=== PATIENT | male | born 1940 | race Caucasian/White ===

== ENCOUNTER 2018-01-04 17:56 | Observation (INO) ==
[2018-01-04 19:24] LABS: Basophils % 0.3 %; Eosinophils # 0.1 K/mcL (0.0-0.6); Eosinophils % 0.8 %; Hematocrit 46.4 % (37.5-50.1); Hemoglobin 15.1 g/dL (12.9-16.9); Immature Granulocytes % 0.4 % (0-4); Lymphocytes % 13.1 %; Mean Corpuscular HGB Conc 32.5 g/dL (31.6-35.5); Mean Corpuscular Hemoglobin 29.8 pg (28.0-33.3); Mean Corpuscular Volume 91.5 fL (83.0-100.0); Mean Platelet Volume 10.9 fL (9.4-12.4); Monocytes # 0.9 K/mcL (0.0-1.3); Monocytes % 11.9 %; Neutrophils # 5.6 K/mcL (1.6-8.9); Platelet Count 142 K/mcL (140-400); Red Blood Count 5.07 M/mcL (4.19-5.50); Red Cell Distribution Width 14.1 % (11.5-14.5); Segmented Neutrophils % 73.5 %
[2018-01-04] MEDS ORDERED: *HR* FentaNYL (PF) 100 MCG/2 ML VIAL IVP ONE (19:27)
[2018-01-04 19:45] LABS: Calcium 8.7 mg/dL (8.6-10.3)
--- NOTE | 2018-01-04 19:46 | Emergency Department Note ---
Disposition Clinical Impression: Supratherapeutic INR, Kidney stone, Presence of IVC filter Disposition: Admitted As Inpatient Condition: Good Time of Disposition: 20:55 General Adult HPI - General Chief complaint: ED Abdominal Pain Stated complaint: aleyda stone Time Seen by Provider: 01/04/18 18:05 Source: patient, EMS Mode of arrival: EMS Limitations: no limitations Nursing Notes Reviewed: Yes Vital Signs Reviewed: Yes - History of Present Illness HPI Narrative: Patient is a 77-year-old male that presents the emergency department as a transfer from the [facility]. Patient states that he has been having ongoing right flank pain that radiates around into his lower abdomen down into his groin. Patient states that this pain has been pretty significant has rendered him from getting comfortable. Patient states that he has been urinating blood but has not had any increased urgency or frequency. Patient was sent here from the [place] due to having a kidney stone with hydronephrosis, elevated INR and into the IVC filter being in the wall of the aorta. Patient states that he is currently on Coumadin for his atrial fibrillation. Pain Scale: 5 - Related Data Allergies Allergy/AdvReac Type Severity Reaction Status Date / Time No Known Allergies Allergy Verified 01/04/18 18:05 All systems ED: reviewed and negative except as stated. Constitutional: Reports: fever Cardiovascular: Denies: chest pain Respiratory: Denies: dyspnea Gastrointestinal: Reports: abdominal pain, nausea. Denies: vomiting Genitourinary: Reports: hematuria. Denies: urgency, dysuria, frequency Musculoskeletal: Reports: back pain Past Medical History - Past Medical History Medical history: Reports: atrial fibrillation, DVT, hyperlipidemia, hypertension, kidney stones, myocardial infarction Psychiatric history: Reports: no psych history - Social History Smoking Status: Never smoker Smokeless Tobacco Status: No Alcohol use: Reports: rarely Drug use: Reports: none Physical Exam - General Limitations: no limitations General appearance: alert, in no apparent distress - Head Head exam: atraumatic, normocephalic - Eye Eye exam: Present: normal appearance, EOMI - Neck Neck exam: Present: normal inspection, full ROM, trachea midline - Respiratory Respiratory exam: Present: normal lung sounds bilaterally. Absent: respiratory distress, wheezes - Cardiovascular Cardiovascular exam: Present: regular rate, normal rhythm, normal heart sounds, +S1, +S2 - Abdominal Exam Abdominal exam: Present: soft, tenderness (Right sided), normal bowel sounds - Neurological Exam Neurological exam: Present: alert, oriented X3 - Psychiatric Psychiatric exam: Present: normal affect, normal mood - Skin Skin exam: Present: warm, dry, intact Course Vital Signs Temperature 97.7 F 01/04/18 18:05 Pulse Rate 56 01/04/18 18:05 Respiratory Rate 16 01/04/18 18:05 Blood Pressure 124/74 01/04/18 18:05 O2 Sat by Pulse Oximetry 98 01/04/18 18:05 Temperature 97.7 F 01/04/18 18:05 Pulse Rate 71 01/04/18 20:08 Respiratory Rate 16 01/04/18 20:08 Blood Pressure 122/71 01/04/18 20:08 O2 Sat by Pulse Oximetry 97 01/04/18 20:08 Oxygen Delivery Oxygen Delivery Room Air Medical Decision Making - MDM Narrative Medical decision making narrative: Due the patient's into the emergency department with kidney stone and a IVC filter that has gone through the IVC and is in the wall of the aorta I called and spoke with Dr. Joseph do not feel that this was a surgical emergency and review the CAT scan see the patient in consult tomorrow. I also placed a consu lt for urology due the patient having a 8 mm kidney stone on the right. Patient's laboratory testing was repeated here in the emergency department. Patient's INR was 7.7. Patient does appear to have an acute kidney injury. This to my review of the patient's chart I was not able to find any record of previous kidney disease. There are not any previous laboratory testing in our computer system for comparison. The patient will need to be admitted to the hospital for further evaluation and management. The patient was given 5 mg of vitamin K for reversal of his warfarin. Patient has been stable here in the emergency department and has been provided with analgesics. The disc that was sent from the [facility] with the patient's images was sent to radiology for uploading to pacs. Patient will need to be admitted to the hospital for further evaluation and management. I do not feel that the patient's Coumadin needs to be fully reverse at this time. He has no signs of active bleeding. The vitamin K was given. His warfarin will be held. I do not feel that fresh frozen plasma is necessary or indicated at this time. I called and spoke the admitting hospitalist Dr. Toledo and he has accepted the patient to their service. Patient be admitted to the hospital this time for further evaluation and management. - Medical Records Medical records reviewed: Yes I reviewed the patient's medical records. - Lab Data Lab results reviewed: Yes I reviewed the patient's lab results. Result diagrams: 01/06/18 05:02 01/06/18 05:02 Lab Results 01/04/18 01/04/18 01/04/18 Range/Units 19:12 19:12 19:12 WBC 7.6 (4.3-11.1) K/mcL RBC 5.07 (4.19-5.50) M/mcL Hgb 15.1 (12.9-16.9) g/dL Hct 46.4 (37.5-50.1) % MCV 91.5 (83.0-100.0) fL MCH 29.8 (28.0-33.3) pg MCHC 32.5 (31.6-35.5) g/dL RDW 14.1 (11.5-14.5) % Plt Count 142 (140-400) K/mcL MPV 10.9 (9.4-12.4) fL Immature Gran % 0.4 (0-4) % Seg Neutrophils % 73.5 % Lymphocytes % 13.1 % Monocytes % 11.9 % Eosinophils % 0.8 % Basophils % 0.3 % Neutrophils # 5.6 (1.6-8.9) K/mcL Lymphocytes # 1.0 (0.6-4.6) K/mcL Monocytes # 0.9 (0.0-1.3) K/mcL Eosinophils # 0.1 (0.0-0.6) K/mcL Basophils # 0.0 (0.0-0.2) K/mcL PT 87.4 H* (9.4-12.1) Seconds INR 7.7 H* Sodium 138 (136-145) mEq/L Potassium 4.0 (3.5-5.1) mEq/L Chloride 103 (98-107) mEq/L Carbon Dioxide 28 (23-29) mEq/L BUN 22 (8-23) mg/dL Creatinine 1.79 H (0.70-1.30) mg/dL Est GFR ( Amer) 45 L (> 60) Est GFR (Non-Af Amer) 37 L (> 60) BUN/Creatinine Ratio 12 (6-26) Glucose 102 (70-105) mg/dL Calculated Osmolality 290 (280-300) Calcium 8.7 (8.6-10.3) mg/dL - Radiology Data Radiology results reviewed: Yes I reviewed the patient's radiology results. The CT report from the [facility] was reviewed by myself and the attending. The disc was sent to radiology for the images to be uploaded. - EKG Data EKG #1 EKG attestation: Yes I reviewed and interpreted this EKG. EKG results narrative: EKG shows atrial fibrillation at a rate of 72 bpm, QRS duration of 120, QTC of 481. No evidence of STEMI and EKG. Attestation Statement - Attestation Attestation: I examined this patient and my medical decision-making was reviewed with the Resident Physician, Dr. Alvarez. I agree with the documented findings, disposition and treatment plan as described except to the extent set forth below. Pt is a 77 yo wm sent from the [facility] today after he was evaluated for R sided back pain radiating to R groin with nausea. Pt had complete lab eval and CT imaging, all records from [place] sent with pt. Upon review of records, pt with large R prox ureter stone, and also IVC filter complication noted on scan without intra-abd bleeding. Pt also on coumadin for A fib, and INR today is 7. Labs and imaging done within the last 5 hours. Pt in NAD, VSS. I agree with patient's physical exam findings as documented. Patient with no. No signs in the abdomen but complaining of moderate right flank pain radiating to the right groin consistent with this stone finding on the CT. She had repeat labs performed, was kept on cardiac monitoring, treated his pain and nausea, and contacted vascular surgery was consulate from the ED regarding his abnormal IVC finding. We applied to the images so they can review the films and contact us back and stated that they felt this was not any emergency but agreed to consult on the patient while here. We also consult urology to see the patient. Patient remained hemodynamically stable with no increase in his abdominal pain. Patient's H&H is stable, was administered vitamin K for elevated INR reversal. Patient will be admitted and urology and vascular surgery of both consulate from the ED and case was discussed with hospitalist who accepted the patient for admission.
[2018-01-04 19:56] LABS: INR 7.7; Prothrombin Time 87.4 Seconds (9.4-12.1)
[2018-01-04] MEDS ORDERED: traMADol 50 MG TABLET PO PRN (23:46)
[2018-01-04] MEDS ORDERED: Naloxone 0.4 MG/ML INJ IVP PRN (23:46)
[2018-01-04] MEDS ORDERED: Acetaminophen 325 MG TABLET PO PRN (23:46)
[2018-01-05] MEDS: *HR* OxyCODONE Immed Rel 5 MG TABLET PO PRN ×3 (00:11→17:16)
[2018-01-05] MEDS: 0.9 % Sodium Chloride 1,000 ML IVC SCH ×2 (00:12→11:51)
[2018-01-05] MEDS ORDERED: Nitroglycerin 0.4 MG TAB.SUBL SL PRN (02:47)
[2018-01-05] MEDS ORDERED: Furosemide 40 MG TABLET PO PRN (02:47)
[2018-01-05 04:11] LABS: Basophils % 0.3 %; Eosinophils # 0.1 K/mcL (0.0-0.6); Hematocrit 44.3 % (37.5-50.1); Hemoglobin 14.5 g/dL (12.9-16.9); Immature Granulocytes % 0.3 % (0-4); Lymphocytes # 0.7 K/mcL (0.6-4.6); Lymphocytes % 8.9 %; Mean Corpuscular HGB Conc 32.7 g/dL (31.6-35.5); Mean Corpuscular Hemoglobin 29.7 pg (28.0-33.3); Mean Corpuscular Volume 90.6 fL (83.0-100.0); Mean Platelet Volume 11.1 fL (9.4-12.4); Monocytes % 12.5 %; Neutrophils # 6.1 K/mcL (1.6-8.9); Platelet Count 132 K/mcL (140-400); Red Blood Count 4.89 M/mcL (4.19-5.50); Red Cell Distribution Width 14.1 % (11.5-14.5)
[2018-01-05 04:20] LABS: INR 2.9; Prothrombin Time 32.6 Seconds (9.4-12.1)
[2018-01-05 04:32] LABS: Albumin 3.2 g/dL (3.5-5.7); Albumin/Globulin Ratio 1.5 (1.1-2.2); Bilirubin,Total 1.9 mg/dL (0.3-1.0); Calcium 8.5 mg/dL (8.6-10.3); Globulin 2.1 g/dL (2.4-3.5); Potassium 3.9 mEq/L (3.5-5.1); Total Protein 5.3 g/dL (6.4-8.9)
--- NOTE | 2018-01-05 06:49 | Internal Med History&Physical ---
Date of Encounter: 01/05/18 Time of Encounter: 04:00 Internal Medicine - H&P: HPI Chief complaint: Flank Pain History of present illness: Mr. Ortiz is a 77 year old male that presents the emergency department as a transfer from the [facility]. Patient states that he has been having ongoing right flank pain that radiates around into his lower abdomen down into his groin. Patient states that this pain has been pretty significant has rendered him from getting comfortable. Patient states that he has been urinating blood but has not had any increased urgency or frequency. Patient was sent here from the [place] due to having a kidney stone with hydronephrosis, elevated INR and into the IVC filter being in the wall of the aorta. Patient states that he is currently on Coumadin for his atrial fibrillation. Past Med Surg Social Fam HX - Past Medical History Medical history: atrial fibrillation, DVT, hyperlipidemia, hypertension, kidney stones, myocardial infarction Psychiatric history: no psych history - Past Surgical History Additional surgical history: Knee, back surgery, - Social History Smoking Status: Never smoker Smokeless Tobacco Status: No Alcohol use: rarely Drug use: none Internal Medicine - H&P: Meds Carvedilol [Coreg] 12.5 mg PO BID 01/05/18 [History] Furosemide [Lasix] 40 mg PO DAILY PRN 01/05/18 [History] Lisinopril [Zestril] 20 mg PO DAILY 01/05/18 [History] Lovastatin [Altoprev] 20 mg PO DAILY 01/05/18 [History] Nitroglycerin [Nitrostat] 0.4 mg SL PRN PRN 01/05/18 [History] Warfarin [Coumadin] 5 mg PO 1800 01/05/18 [History] Allergy/AdvReac Type Severity Reaction Status Date / Time No Known Allergies Allergy Verified 01/04/18 18:05 All Systems PM: A 10-system review of systems was performed and is negative for pertinent findings except as documented above in the HPI. - Constitutional Constitutional: no chills, no fever(s), no night sweats - EENT Eyes: no change in vision, no discharge, no pain, no photophobia Ears: no ear discharge, no ear pain, no tinnitus Nose, mouth and throat: no dysphagia, no nasal discharge, no neck pain, no sore throat - Cardiovascular Cardiovascular ROS IM: no chest pain, no diaphoresis, no dyspnea, no lightheadedness, no palpitations, no syncope - Respiratory Respiratory: no cough, no dyspnea, no wheezing, no excessive phlegm production - Gastrointestinal Gastrointestinal: no abdominal pain, no diarrhea, no hematemesis, no hematochezia, no melena, no nausea, no vomiting - Musculoskeletal Musculoskeletal ROS IM: no numbness, no tingling - Integumentary Integumentary IM: no rash, no unusual bruising - Neurological Neurological ROS: no confusion, no convulsions, no focal weakness, no numbness, no tingling, no tremor(s) - Hematologic/Lymphatic Hematologic/Lymphatic: no easy bruising - Constitutional Vitals: Temp Pulse Resp BP Pulse Ox 98.7 F 66 15 112/72 95 01/05/18 03:27 01/05/18 03:27 01/05/18 03:27 01/05/18 03:27 01/05/18 03:27 Exam: General: Alert and oriented 3 lying in bed in no acute distress Skin:Normal color, no rash, no lesions. HEENT:EOM, pupils equal, round and reactive. Cardiovascular:Normal S1 & S2, no rubs, murmurs or gallops. No JVD. Pulse regular. Lungs:Normal breath sounds, no wheezes or crackles. Abdomen:Soft, non-tender, no rigidity. No CVA tenderness Extremities:No deformity, no edema or tenderness, no joint swelling or clubbing. Neurological:Normal cognition and motor skills. Pulses:Carotid and radial pulses normal +2. Rest of the physical exam is non contributory Internal Med - H&P Results - Labs CBC & Chem 7: 01/06/18 05:02 01/06/18 05:02 Labs: Short CBC 01/04/18 01/05/18 Range/Units 19:12 03:46 WBC 7.6 7.9 (4.3-11.1) K/mcL Hgb 15.1 14.5 (12.9-16.9) g/dL Hct 46.4 44.3 (37.5-50.1) % Plt Count 142 132 L (140-400) K/mcL Neutrophils # 5.6 6.1 (1.6-8.9) K/mcL BMP 01/04/18 01/05/18 19:12 03:46 Sodium 138 141 Potassium 4.0 3.9 Chloride 103 108 H Carbon Dioxide 28 25 BUN 22 23 Creatinine 1.79 H 1.76 H Glucose 102 117 H Calcium 8.7 8.5 L Liver Function 01/05/18 Range/Units 03:46 Total Bilirubin 1.9 H (0.3-1.0) mg/dL AST 10 L (13-39) Units/L ALT 5 L (7-52) Units/L Alkaline Phosphatase 55 (34-104) Units/L Albumin 3.2 L (3.5-5.7) g/dL - Assessment and plan (1) Kidney stone Status: Acute Assessment and plan: 8 mm kidney stone involving the right ureter. Urology has been consulted and will see patient in the morning. Plan: Continue IV fluids Pain control We will give patient 1 dose of tamsulosin Antiemetics Urology to assess in the morning (2) Presence of IVC filter Status: Chronic Assessment and plan: Imaging report shows that IVC filter to be within the wall of the aorta. Despite his elevated INR, Dr. Joseph with Vascular was consulted and did not feel that this was a surgical emergency and reviewed the CAT scan; he will see the patient in consult tomorrow. We will monitor vitals. (3) Supratherapeutic INR Status: Acute Assessment and plan: INR of 7.7. The patient was given 5 mg of vitamin K for reversal of his warfarin. We will repeat a.m. INR (4) Atrial fibrillation Status: Chronic Assessment and plan: Patient's supratherapeutic on warfarin. Holding warfarin for now Qualifiers: Atrial fibrillation type: chronic Qualified Code(s): I48.2 - Chronic atrial fibrillation - Time Spent With Patient Total time spent is greater than 50% in coordination of care (as documented) at patient's floor/unit and/or counseling patient:
[2018-01-05] MEDS ORDERED: Lisinopril 20 MG TABLET PO SCH (09:00)
--- NOTE | 2018-01-05 09:31 | Internal Med Progress Note ---
<Devin Richard S - Last Filed: 01/05/18 10:44> Hospitalist Progress Note - Encounter Date of Encounter: 01/05/18 Time of Encounter: 09:27 - Subjective Interval History: Mr Ortiz is a 77yo male with PMH of chronic a fib, HDL, HTN, MS. He presented from the [facility] last night after experiencing abd pain in the groin and RLQ region x 5 days. He states the pain radiated into the groin and was simialr to "getting kicked in the balls." He was unable to get comfortable in any position. The pt denies any fever, chills, N/V/D. He denies any chest pain or SOB. The pt also had a supratheruaptic INR on admission, he is on coumadin for chronic a fib. His coumadin has been held and his was given vitamin K on admission. This morning the pt denies any N/V, fever, or chills. He still has some crampy abd pain that is located in the RLQ. He currently has no active chest pain or SOB. - Exam Vitals: Temp Pulse Resp BP Pulse Ox 97.7 F 75 16 119/76 95 01/05/18 07:44 01/05/18 07:44 01/05/18 07:44 01/05/18 07:44 01/05/18 07:44 Exam: General: Alert and oriented 3 lying in bed in no acute distress Skin:Normal color, no rash, no lesions. HEENT: normocephalic atraumatic Cardiovascular: regular rate, irregularly irregular rhythm Lungs:Normal breath sounds, no wheezes or crackles. Abdomen: obese, Soft, tender to palpation in RLQ and periumbilical region, No CVA tenderness Extremities:No deformity, no edema or tenderness, no joint swelling or clubbing. Neurological:Normal cognition and motor skills. No FND - Assessment and Plan (1) Kidney stone Current Visit: Yes Status: Acute Assessment and Plan: Pt presented with 5d of abd pain with radiation into the groin - denied N/V - came from [facility] CT report showed an 8mm kidney stone of the right ureter w/ hydronephrosis Pt remains afebrile without a white count Plan: - continue 125cc/hr NS - pain control - zofran prn nausea - was given 1 dose of tamsulosin - urology to see Plans to stent today NPO dispo - d/c after stent and if stable (2) Supratherapeutic INR Current Visit: Yes Status: Acute Assessment and Plan: On admission: INR of 7.7 PT 87.4 This morning: INR 2.9 PT 32.6 Plan: - was given 5mg of vitamin K for coumadin reversal - hold coumadin (3) Presence of IVC filter Current Visit: Yes Status: Acute Assessment and Plan: Imaging report shows that IVC filter to be within the wall of the aorta. Plan: - Vascular surgery consulted Dr. Tsang viewed CT scan and will see pt today Not a surgical emergency (4) Atrial fibrillation Current Visit: Yes Status: Acute Assessment and Plan: Pt has irregularly irregular rhythm, HR 75 - on Coumadin - currently held 2/2 supratheruptc INR (5) Hypertension Current Visit: Yes Status: Acute Assessment and Plan: BP 119/76 - well controlled - on zestril (6) Hyperlipidemia Current Visit: No Status: Chronic Assessment and Plan: on Lovastatin - continue home med (7) DVT prophylaxis Current Visit: Yes Status: Acute Assessment and Plan: scd ordered (8) Obesity (BMI 30.0-34.9) Current Visit: No Status: Chronic Assessment and Plan: BMI 30.2 - healthier lifestyle choices - Time Spent with Patient Total time spent is greater than 50% in coordination of care (as documented) at patient's floor/unit and/or counseling patient: less than 15 minutes Plan of Care Discussed with: patient Internal Medicine: Result - Labs CBC & Chem 7: 01/05/18 03:46 01/05/18 03:46 Labs: Short CBC 01/04/18 01/05/18 Range/Units 19:12 03:46 WBC 7.6 7.9 (4.3-11.1) K/mcL Hgb 15.1 14.5 (12.9-16.9) g/dL Hct 46.4 44.3 (37.5-50.1) % Plt Count 142 132 L (140-400) K/mcL Neutrophils # 5.6 6.1 (1.6-8.9) K/mcL BMP 01/04/18 01/05/18 19:12 03:46 Sodium 138 141 Potassium 4.0 3.9 Chloride 103 108 H Carbon Dioxide 28 25 BUN 22 23 Creatinine 1.79 H 1.76 H Glucose 102 117 H Calcium 8.7 8.5 L Liver Function 01/05/18 Range/Units 03:46 Total Bilirubin 1.9 H (0.3-1.0) mg/dL AST 10 L (13-39) Units/L ALT 5 L (7-52) Units/L Alkaline Phosphatase 55 (34-104) Units/L Albumin 3.2 L (3.5-5.7) g/dL - ABG Interpretation ABG results: PT/INR, D-dimer PT 32.6 Seconds (9.4-12.1) H D 01/05/18 03:46 Consult Discharge Plan - Plan Referrals: Arturo Tsang MD [Partnered Physician] - 04/05/18 NONE,PCP [Primary Care Provider] - <Vik Monae - Last Filed: 01/05/18 16:17> Hospitalist Progress Note - Exam Vitals: Temp Pulse Resp BP Pulse Ox 98.7 F 80 14 122/79 96 01/05/18 14:55 01/05/18 14:55 01/05/18 14:55 01/05/18 14:55 01/05/18 14:55 - Assessment and Plan (1) Supratherapeutic INR Current Visit: Yes Status: Acute (2) Kidney stone Current Visit: Yes Status: Acute (3) Presence of IVC filter Current Visit: Yes Status: Chronic (4) DVT prophylaxis Current Visit: Yes Status: Acute (5) Atrial fibrillation Current Visit: Yes Status: Chronic (6) Hypertension Current Visit: Yes Status: Acute (7) Hyperlipidemia Current Visit: No Status: Chronic (8) Obesity (BMI 30.0-34.9) Current Visit: No Status: Chronic - Time Spent with Patient Total time spent is greater than 50% in coordination of care (as documented) at patient's floor/unit and/or counseling patient: Internal Medicine: Result - Labs CBC & Chem 7: 01/05/18 03:46 01/05/18 15:33 Labs: Short CBC 01/04/18 01/05/18 Range/Units 19:12 03:46 WBC 7.6 7.9 (4.3-11.1) K/mcL Hgb 15.1 14.5 (12.9-16.9) g/dL Hct 46.4 44.3 (37.5-50.1) % Plt Count 142 132 L (140-400) K/mcL Neutrophils # 5.6 6.1 (1.6-8.9) K/mcL BMP 01/04/18 01/05/18 01/05/18 19:12 03:46 15:33 Sodium 138 141 139 Potassium 4.0 3.9 4.1 Chloride 103 108 H 105 Carbon Dioxide 28 25 26 BUN 22 23 22 Creatinine 1.79 H 1.76 H 1.72 H Glucose 102 117 H 95 Calcium 8.7 8.5 L 8.9 Liver Function 01/05/18 Range/Units 03:46 Total Bilirubin 1.9 H (0.3-1.0) mg/dL AST 10 L (13-39) Units/L ALT 5 L (7-52) Units/L Alkaline Phosphatase 55 (34-104) Units/L Albumin 3.2 L (3.5-5.7) g/dL - ABG Interpretation ABG results: PT/INR, D-dimer PT 32.6 Seconds (9.4-12.1) H D 01/05/18 03:46 - Attending Attestation I examined this patient and my medical decision-making was reviewed with the Resident Physician. I agree with the documented findings, disposition and treatment plan as described except to the extent set forth below. <Devin Richard - Last Filed: 01/05/18 10:44> (4) Atrial fibrillation Qualifiers: Atrial fibrillation type: chronic Qualified Code(s): I48.2 - Chronic atrial fibrillation (5) Hypertension Qualifiers: Hypertension type: essential hypertension Qualified Code(s): I10 - Essential (primary) hypertension (6) Hyperlipidemia Qualifiers: Hyperlipidemia type: unspecified Qualified Code(s): E78.5 - Hyperlipidemia, unspecified <Vik Monae - Last Filed: 01/05/18 16:17> (5) Atrial fibrillation Qualifiers: Atrial fibrillation type: chronic Qualified Code(s): I48.2 - Chronic atrial fibrillation (6) Hypertension Qualifiers: Hypertension type: essential hypertension Qualified Code(s): I10 - Essential (primary) hypertension (7) Hyperlipidemia Qualifiers: Hyperlipidemia type: unspecified Qualified Code(s): E78.5 - Hyperlipidemia, unspecified
--- NOTE | 2018-01-05 10:55 | Urology - Consult Note ---
Date of Encounter: 01/05/18 Time of Encounter: 10:53 - Assessment and Plan (1) Ureteral calculus, right Current Visit: Yes Status: Acute Assessment and plan: Patient transferred from [facility] with 8 mm right ureteral calculus. Patient is on Coumadin. Discussed findings and options for management with patient as well as admitting physicians. Plan: Add on today for right ureteral stent placement under anesthesia. Definitive surgical planning including management of anticoagulation (2) Hydronephrosis due to obstruction of ureter Current Visit: Yes Status: Acute Assessment and plan: Secondary to ureteral calculus. Anticipate spontaneous resolution with address of stone. Plan: Stent placement in OR today (3) Anticoagulation excessive Current Visit: Yes Status: Acute Assessment and plan: Patient is on Coumadin with supratherapeutic INR of 7.7 now down to 3. Discussed findings and management with primary service. Unable to perform definitive stone intervention due to anticoagulation. Is safe and indicated in the setting of active anticoagulation. Plan: Okay to continue anticoagulation (4) Flank pain, acute Current Visit: Yes Status: Acute Assessment and plan: Secondary to stone and [place]. Plan: Management as above Urology CN:HPI Consult date: 01/05/18 Reason for consult Urology: Other (Right ureteral calculus) Past Med Surg Social Fam HX - Past Medical History Medical history: atrial fibrillation, DVT, hyperlipidemia, hypertension, kidney stones, myocardial infarction Psychiatric history: no psych history - Past Surgical History Additional surgical history: Knee, back surgery, - Social History Smoking Status: Never smoker Smokeless Tobacco Status: No Alcohol use: rarely Drug use: none Medications and Allergies Carvedilol [Coreg] 12.5 mg PO BID 01/05/18 [History] Furosemide [Lasix] 40 mg PO DAILY PRN 01/05/18 [History] Lisinopril [Zestril] 20 mg PO DAILY 01/05/18 [History] Lovastatin [Altoprev] 20 mg PO DAILY 01/05/18 [History] Nitroglycerin [Nitrostat] 0.4 mg SL PRN PRN 01/05/18 [History] Warfarin [Coumadin] 5 mg PO 1800 01/05/18 [History] Allergy/AdvReac Type Severity Reaction Status Date / Time No Known Allergies Allergy Verified 01/04/18 18:05 Review of Systems - Constitutional no chills, no fever(s) - EENT Nose, mouth and throat: no dizziness, no dry mouth - Cardiovascular no chest pain, no dyspnea - Respiratory no cough, no dyspnea - Gastrointestinal abdominal pain, no fecal incontinence - Genitourinary no genital lesions - Musculoskeletal no muscle weakness, no numbness - Integumentary no lesions, no rash - Neurological no confusion, no sensory deficit - Psychiatric no anxiety, no confusion - Hematologic/Lymphatic easy bleeding, other (Anticoagulated) - Allergic/Immunologic no throat swelling, no wheezing Exam Initial Vital Signs Temp Pulse Resp BP Pulse Ox 97.7 F 56 16 124/74 98 01/04/18 18:05 01/04/18 18:05 01/04/18 18:05 01/04/18 18:05 01/04/18 18:05 - General physical appearance Present: well developed, well nourished - Eyes Present: normal ocular movement - ENT Present: normal nares, normal mucosa - Neck Present: trachea midline - Respiratory Present: normal respiratory effort - Abdomen Abdomen: Present: soft, tender - Integumentary Present: no rash, no abnormal pigmentation - Neurologic Present: normal coordination - Musculoskeletal Present: normal gait Urology Results - Labs 01/05/18 03:46 01/05/18 03:46 Abnormal lab results Plt Count 132 K/mcL (140-400) L 01/05/18 03:46 PT 32.6 Seconds (9.4-12.1) H D 01/05/18 03:46 Chloride 108 mEq/L (98-107) H 01/05/18 03:46 Creatinine 1.76 mg/dL (0.70-1.30) H 01/05/18 03:46 Est GFR ( Amer) 46 (> 60) L 01/05/18 03:46 Est GFR (Non-Af Amer) 38 (> 60) L 01/05/18 03:46 Glucose 117 mg/dL (70-105) H 01/05/18 03:46 Calcium 8.5 mg/dL (8.6-10.3) L 01/05/18 03:46 Total Bilirubin 1.9 mg/dL (0.3-1.0) H 01/05/18 03:46 AST 10 Units/L (13-39) L 01/05/18 03:46 ALT 5 Units/L (7-52) L 01/05/18 03:46 Serum Total Protein 5.3 g/dL (6.4-8.9) L 01/05/18 03:46 Albumin 3.2 g/dL (3.5-5.7) L 01/05/18 03:46 Globulin 2.1 g/dL (2.4-3.5) L 01/05/18 03:46 Diabetes panel 01/04/18 01/05/18 Range/Units 19:12 03:46 Sodium 138 141 (136-145) mEq/L Potassium 4.0 3.9 (3.5-5.1) mEq/L Chloride 103 108 H (98-107) mEq/L Carbon Dioxide 28 25 (23-29) mEq/L BUN 22 23 (8-23) mg/dL Creatinine 1.79 H 1.76 H (0.70-1.30) mg/dL Glucose 102 117 H (70-105) mg/dL Calcium 8.7 8.5 L (8.6-10.3) mg/dL AST 10 L (13-39) Units/L ALT 5 L (7-52) Units/L Alkaline Phosphatase 55 (34-104) Units/L Albumin 3.2 L (3.5-5.7) g/dL Calcium panel 01/04/18 01/05/18 Range/Units 19:12 03:46 Calcium 8.7 8.5 L (8.6-10.3) mg/dL Albumin 3.2 L (3.5-5.7) g/dL Pituitary panel 01/04/18 01/05/18 Range/Units 19:12 03:46 Sodium 138 141 (136-145) mEq/L Potassium 4.0 3.9 (3.5-5.1) mEq/L Chloride 103 108 H (98-107) mEq/L Carbon Dioxide 28 25 (23-29) mEq/L BUN 22 23 (8-23) mg/dL Creatinine 1.79 H 1.76 H (0.70-1.30) mg/dL Glucose 102 117 H (70-105) mg/dL Calcium 8.7 8.5 L (8.6-10.3) mg/dL Adrenal panel 01/04/18 01/05/18 Range/Units 19:12 03:46 Sodium 138 141 (136-145) mEq/L Potassium 4.0 3.9 (3.5-5.1) mEq/L Chloride 103 108 H (98-107) mEq/L Carbon Dioxide 28 25 (23-29) mEq/L BUN 22 23 (8-23) mg/dL Creatinine 1.79 H 1.76 H (0.70-1.30) mg/dL Glucose 102 117 H (70-105) mg/dL Calcium 8.7 8.5 L (8.6-10.3) mg/dL Total Bilirubin 1.9 H (0.3-1.0) mg/dL AST 10 L (13-39) Units/L ALT 5 L (7-52) Units/L Alkaline Phosphatase 55 (34-104) Units/L Albumin 3.2 L (3.5-5.7) g/dL All other labs normal. - Imaging CT scan - abdomen: report reviewed CT scan - pelvis: report reviewed (. Report only no images are available for review) Consult Discharge Plan - Plan Referrals: NONE,PCP [Primary Care Provider] -
--- NOTE | 2018-01-05 12:51 | Vascular/Endovasc Consult Note ---
Date of Encounter: 01/05/18 Time of Encounter: 11:20 Assessment and Plan (1) Presence of IVC filter Current Visit: Yes Status: Chronic The patient had an inferior vena cava filter placed in approximately 2004. He reports that he had multiple deep vein thromboses in the past. His CT scan was reviewed. The scan is a noncontrast scan with [address] reveals that the filter appears to be a [employer] brand permanent filter. A strut is visualized extending medially through the vena cava wall. The tip of the strut appears to be adjacent or abuts a calcified section of the infrarenal aorta. The does not appear to be intrusion into the aorta. There is no associated inflammatory changes or hematoma formation. There is no indication for removal of the filter at this time. Surveillance is recommended. The patient may follow up in vascular surgery clinic in approximately 3 months with a repeat CT scan. (2) Atrial fibrillation Current Visit: Yes Status: Chronic Qualifiers: Atrial fibrillation type: chronic Qualified Code(s): I48.2 - Chronic atrial fibrillation (3) Hypertension Current Visit: Yes Status: Chronic Qualifiers: Hypertension type: essential hypertension Qualified Code(s): I10 - Essential (primary) hypertension (4) Hyperlipidemia Current Visit: Yes Status: Chronic Qualifiers: Hyperlipidemia type: mixed hyperlipidemia Qualified Code(s): E78.2 - Mixed hyperlipidemia (5) Obesity (BMI 30.0-34.9) Current Visit: No Status: Chronic (6) Kidney stone Current Visit: Yes Status: Acute - History of Present Illness Consult date: 01/05/18 Requesting physician: Alfredo Alvarez Consult reason: Evaluation of inferior vena cava filter Chief complaint: Kidney stone History of present illness: Mr. Ortiz is a 77 year old male with a history of deep vein thrombosis, H or fibrillation, hyperlipidemia, hypertension, coronary artery disease with prior myocardial infarction and kidney stones. The patient presented to the [facility] with back pain. He is found have a kidney stone by CT scan. He underwent a noncontrast CT scan with 5 mm cuts. The scan also evaluated his prior inferior vena cava filter. The report stated possible penetration of a strut into the aorta. Vascular surgery was counseled for further evaluation. The patient reports flank pain related to his kidney stones. Denies chronic lower back pain. He denies abdominal pain. He denies any chest pain or shortness breath. He reports that his inferior vena cava filter was placed in the approximately 2004. Past Med Surg Social Fam HX - Past Medical History Medical history: atrial fibrillation, DVT, hyperlipidemia, hypertension, kidney stones, myocardial infarction Psychiatric history: no psych history - Past Surgical History Additional surgical history: Knee, back surgery, - Social History Smoking Status: Never smoker Smokeless Tobacco Status: No Alcohol use: rarely Drug use: none - Family History Father Living Status: Mother Living Status: Medications and Allergies Carvedilol [Coreg] 12.5 mg PO BID 01/05/18 [History] Furosemide [Lasix] 40 mg PO DAILY PRN 01/05/18 [History] Lisinopril [Zestril] 20 mg PO DAILY 01/05/18 [History] Lovastatin [Altoprev] 20 mg PO DAILY 01/05/18 [History] Nitroglycerin [Nitrostat] 0.4 mg SL PRN PRN 01/05/18 [History] Warfarin [Coumadin] 5 mg PO 1800 01/05/18 [History] Allergy/AdvReac Type Severity Reaction Status Date / Time No Known Allergies Allergy Verified 01/04/18 18:05 All Systems Review: The remainder of the systems were reviewed and are negative Exam Vital Signs, Last 4 Hours Temp Pulse Resp BP Pulse Ox 01/05/18 10:50 98.5 F 65 16 113/79 96 General: Present: Conversant, No Apparent Distress HEENT: Present: Trachea midline, Pupils equal Neck: Absent: JVD, Lymphadenopathy, Left Carotid bruit, Right Carotid bruit Cardiac: Present: Normal S1 and S2, Irregular Rhythm Lungs: Present: Normal Breath Sounds, No Wheeze, Rales, Rhonchi Neuro: Present: Alert and responsive, No focal deficits noted, Motor nerves grossly intact, Sensory nerves grossly intact Abdomen: Present: Soft, Non-tender. Absent: Masses Vascular: Present: Normal capillary refill. Absent: Cyanosis, Edema Skin: Present: No rashes noted on visualized skin Musculoskeletal: Present: No Chest Wall Tenderness Consult Discharge Plan - Plan Referrals: Arturo Tsang MD [Partnered Physician] - 04/05/18 NONE,PCP [Primary Care Provider] -
--- NOTE | 2018-01-05 15:09 | Discharge Summary ---
<Devin Richard S - Last Filed: 01/05/18 15:07> - NOTES TO OUTPATIENT PROVIDER Notes to Outpatient Provider: Follow up on kidney fxn. Follow up in vascular surgery clinic in 3mos with repeat CT scan Orders not resulted at time of discharge: Pending orders 01/05/18 14:56 EKG [ECG 12 lead ECG] [ECG] Stat 01/06/18 04:00 BMP [Basic Metabolic Panel] AM 0400 Complete Blood Count [HEME] AM 0400 Prothrombin Time INR [COAG] AM 0400 Date of Encounter: 01/05/18 Time of Encounter: 15:07 - Discharge Diagnosis (1) Kidney stone Priority: Primary Status: Acute (2) Supratherapeutic INR Priority: Secondary Status: Acute (3) Presence of IVC filter Priority: Secondary Status: Chronic (4) Atrial fibrillation Priority: Secondary Status: Chronic Qualifiers: Atrial fibrillation type: chronic Qualified Code(s): I48.2 - Chronic atrial fibrillation (5) Hypertension Priority: Secondary Status: Acute Qualifiers: Hypertension type: essential hypertension Qualified Code(s): I10 - Essential (primary) hypertension (6) Hyperlipidemia Priority: Secondary Status: Chronic Qualifiers: Hyperlipidemia type: unspecified Qualified Code(s): E78.5 - Hyperlipidemia, unspecified (7) DVT prophylaxis Priority: Secondary Status: Acute (8) Obesity (BMI 30.0-34.9) Priority: Secondary Status: Chronic Hospital course: Mr Ortiz is a 77yo male with PMH of chronic a fib, HDL, HTN, [place]. He presented from the [facility] last night after experiencing abd pain in the groin and RLQ region x 5 days. He states the pain radiated into the groin and was simialr to "getting kicked in the balls." He was unable to get comfortable in any position. The pt denies any fever, chills, N/V/D. He denies any chest pain or SOB. The pt also had a supratheruaptic INR on admission, he is on coumadin for chronic a fib. His coumadin has been held and his was given vitamin K on admission. - PT 87.4, INR 7.7 on admission - this morning INR 2.9, PT 32.6 This morning the pt denies any N/V, fever, or chills. He still has some crampy abd pain that is located in the RLQ. He currently has no active chest pain or SOB. Urology is to see the patient for a stent this afternoon. - CT scan showed an 8mm kidney stone at the right ureter with hydronpehoris - pt remained afebrile w/o a white count Creatinine was elevated on admission at 1.79 - at [facility] creatinine was 1.9 - conditional discharge pending procedure completion and ANGELO resolving, creatinine must be lower than admission for d/c - there will be orders for a recheck of BMP later this afternoon, as well as for the morning - pt was treated with 125cc/hr IVF NS, given pain control, zofran for nausea, and 1 dose of tamsulosin Discharge discussed with: patient - Time Spent with Patient Total time spent providing and/or coordinating discharge services: Less than 30 minutes - Discharge Medications Home Medications: Carvedilol [Coreg] 12.5 mg PO BID 01/05/18 [History] Furosemide [Lasix] 40 mg PO DAILY PRN 01/05/18 [History] Lisinopril [Zestril] 20 mg PO DAILY 01/05/18 [History] Lovastatin [Altoprev] 20 mg PO DAILY 01/05/18 [History] Nitroglycerin [Nitrostat] 0.4 mg SL PRN PRN 01/05/18 [History] Warfarin [Coumadin] 5 mg PO 1800 01/05/18 [History] Allergies/Adverse Reactions: Allergy/AdvReac Type Severity Reaction Status Date / Time No Known Allergies Allergy Verified 01/04/18 18:05 Date of admission: 01/04/18 22:58 Primary care physician: PCP NONE Consults: 01/04/18 19:14 Consult to Urology [CONS] Stat Consulting Provider: Urology [place] Reason for Consult: 8mm stone Call Completed: No Consult to Vascular Surgery [CONS] Stat Consulting Provider: Vascular Surgery Ja[facility] Reason for Consult: ivc filter perf Call Completed: Yes 01/04/18 23:35 Consult to Nutrition [CONS] Routine Comment: Consulting Provider: NUTRITION Reason for Dietary Consult: Other Discharging clinician: Devin Richard Anticipated date of discharge: 01/06/18 - Constitutional Vitals: Temp Pulse Resp BP Pulse Ox 98.5 F 65 16 113/79 96 01/05/18 10:50 01/05/18 10:50 01/05/18 10:50 01/05/18 10:50 01/05/18 10:50 Exam: General: Alert and oriented 3 lying in bed in no acute distress Skin:Normal color, no rash, no lesions. HEENT: normocephalic atraumatic Cardiovascular: regular rate, irregularly irregular rhythm Lungs:Normal breath sounds, no wheezes or crackles. Abdomen: obese, Soft, tender to palpation in RLQ and periumbilical region, No CVA tenderness Extremities:No deformity, no edema or tenderness, no joint swelling or clubbing. Neurological:Normal cognition and motor skills. No FND - Patient Status Disposition: Home, Self-Care Condition: Good - Discharge Instructions Follow Up With: NONE,PCP [Primary Care Provider] - Arturo Tsang MD [Partnered Physician] - 04/05/18 - Diet and Activity Activity: increase activity as tolerated Diet: advance to your usual diet <Vik Monae - Last Filed: 01/05/18 16:23> Orders not resulted at time of discharge: Pending orders 01/05/18 14:56 EKG [ECG 12 lead ECG] [ECG] Stat 01/06/18 04:00 BMP [Basic Metabolic Panel] AM 0400 Complete Blood Count [HEME] AM 0400 Prothrombin Time INR [COAG] AM 0400 - Discharge Diagnosis (1) Supratherapeutic INR Status: Acute (2) Kidney stone Status: Acute (3) Presence of IVC filter Status: Chronic (4) DVT prophylaxis Status: Acute (5) Atrial fibrillation Status: Chronic Qualifiers: Atrial fibrillation type: chronic Qualified Code(s): I48.2 - Chronic atrial fibrillation (6) Hypertension Status: Acute Qualifiers: Hypertension type: essential hypertension Qualified Code(s): I10 - Essential (primary) hypertension (7) Hyperlipidemia Status: Chronic Qualifiers: Hyperlipidemia type: unspecified Qualified Code(s): E78.5 - Hyperlipidemia, unspecified (8) Obesity (BMI 30.0-34.9) Status: Chronic Hospital course: Mr. Ortiz is a 77 year old male - Time Spent with Patient Total time spent providing and/or coordinating discharge services: Date of admission: 01/04/18 22:58 Primary care physician: PCP NONE Consults: 01/04/18 19:14 Consult to Urology [CONS] Stat Consulting Provider: Urology [place] Reason for Consult: 8mm stone Call Completed: No Consult to Vascular Surgery [CONS] Stat Consulting Provider: Vascular Surgery [place] Reason for Consult: ivc filter perf Call Completed: Yes 01/04/18 23:35 Consult to Nutrition [CONS] Routine Comment: Consulting Provider: NUTRITION Reason for Dietary Consult: Other - Constitutional Vitals: Temp Pulse Resp BP Pulse Ox 98.7 F 80 14 122/79 96 01/05/18 14:55 01/05/18 14:55 01/05/18 14:55 01/05/18 14:55 01/05/18 14:55 - Attending Attestation I examined this patient and my medical decision-making was reviewed with the Resident Physician. I agree with the documented findings, disposition and treatment plan as described except to the extent set forth below.
[2018-01-05 16:09] LABS: Calcium 8.9 mg/dL (8.6-10.3); Potassium 4.1 mEq/L (3.5-5.1)
[2018-01-05] MEDS ORDERED: Isovue-300 30 ML VIAL ONE (22:10)
--- NOTE | 2018-01-05 22:13 | Anesthesia Evaluation PreOp ---
Date of Encounter: 01/05/18 Time of Encounter: 22:10 - Past History Planned Operation: Rt Cystoscopy Stent Cardiac History: HTN, Hyperlipidemia, Arrhythmia (AFib Chronic on Coreg), Other (CAD DVT off Coumadin) Pulmonary History: Denies Any Significant HX ESCORT PATIENTS History: Denies Any Significant HX Other Medical History: Denies Any Significant HX Anesthesia History: No Prior Anesthetic Complications Alcohol Use: rarely Drug use: none Medications and Allergies Carvedilol [Coreg] 12.5 mg PO BID 01/05/18 [History] Furosemide [Lasix] 40 mg PO DAILY PRN 01/05/18 [History] Lisinopril [Zestril] 20 mg PO DAILY 01/05/18 [History] Lovastatin [Altoprev] 20 mg PO DAILY 01/05/18 [History] Nitroglycerin [Nitrostat] 0.4 mg SL PRN PRN 01/05/18 [History] Warfarin [Coumadin] 5 mg PO 1800 01/05/18 [History] Allergy/AdvReac Type Severity Reaction Status Date / Time No Known Allergies Allergy Verified 01/04/18 18:05 - Meds/Allergy Pre-op Review Medications Reviewed: Yes Allergies Reviewed: Yes Beta Blockers on Current Med List: Yes (Coreg today 1400) Anesthesia Results - Labs 01/05/18 03:46 01/05/18 15:33 Laboratory Tests 01/05/18 01/05/18 03:46 15:33 Hgb 14.5 Hct 44.3 Plt Count 132 L Sodium 139 Potassium 4.1 BUN 22 Creatinine 1.72 H Anesthesia Exam Vital Signs/O2 Sat/Glucose, Most Current Temp Pulse Resp Pulse Ox 01/05/18 20:00 94 01/05/18 19:35 98.8 F 65 15 94 Height: 6'2 Weight: 235 lbs NPO (# of Hours): MN Pain Scale: 0 - HEENT Pupil (Motor): Pupils equal, EOMI Mallampati: II Teeth: Normal Oral Opening: Greater than 3 - ESCORT PATIENTS LOC: Oriented ESCORT PATIENTS Motor: Normal RUE, Normal LUE, Normal RLE, Normal LLE, Normal Face ESCORT PATIENTS Sensory: Normal: RUE, LUE, RLE, LLE, Face - Cardiac Rhythm: Irregular Murmur: None JVD: No Carotid Bruit: No - Pulmonary Breath Sounds: bilateral Clear Respiratory Effort: Symmetrical Anesthesia Assess/Plan ASA Score: 3 (HTN AFib) Modified [place] Scale for Level of Consciousness: Cooperative, oriented, and tranquil Anesthetic Plan: General Monitoring Plan: Standard Monitors Recovery Plan: PACU (Discussed GA, agrees to proceed)
[2018-01-05] MEDS ORDERED: *HR* Propofol 200 MG/20 ML VIAL IVP ONE (22:26)
[2018-01-05] MEDS ORDERED: Ondansetron 4 MG/2 ML VIAL ONE (22:27)
[2018-01-05] MEDS ORDERED: Dexamethasone 4 MG/ML VIAL ONE (22:27)
[2018-01-05] MEDS ORDERED: Lidocaine -MPF 2% 2 ML VIAL ONE (22:27)
[2018-01-05] MEDS ORDERED: *HR* FentaNYL (PF) 100 MCG/2 ML VIAL ONE (22:27)
[2018-01-05] MEDS ORDERED: *HR* Morphine 10 MG/ML VIAL ONE (22:50)
[2018-01-05] MEDS ORDERED: EPHEDrine 50 MG/ML VIAL ONE (22:54)
--- NOTE | 2018-01-05 22:56 | Operative Note ---
Date of procedure: 01/05/18 Pre-op diagnosis: Right ureteral calculus Post-op diagnosis: same Procedure: Cystoscopy, right retrograde ureteral pyelography with intraoperative interpretation of of all radial graphic images by surgeon in real time to facilitate procedure, right ureteral double-J stent placement under fluoroscopic guidance Implants: 6 x 28 right double-J stent Complications: none Anesthesia: GETA Surgeon: Abhishek Austin Was there an entry level administrative assistant present: No Estimated blood loss (cc): 0 Specimen: none Condition: stable Disposition: PACU Procedure in Detail: The patient was brought to the operating theater identified by name and date of . The patient was placed under a general anesthetic and positioned in dorsal lithotomy. The patient was prepped and draped in normal sterile fashion. The cystoscope was inserted into the urethral meatus and advanced toward the bladder under direct visualization. There were no mucosal abnormalities of the urethra prostatic urethra bladder. At this point an open-ended catheter was obtained and placed into the tip of the right ureteral orifice and with gentle injection of contrast a right retrograde ureteral pyelogram was performed. 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 The ureter itself was normal to the level of the proximal ureter or obstruction consistent with the CT imaging of stone was identified. Above this level hydroureteronephrosis was visualized. There were no other suspicious findings. At this point, a Glidewire was advanced into the right renal pelvis. All instruments were removed from the patient's bladder. Over the existing Glidewire under fluoroscopic guidance a 6 x 28 double-J stent was advanced. Once the stent was felt to be in good position the Glidewire was removed and observation of proximal and distal stent curls were noted in satisfactory position. This was felt to be an excellent result. Thus, this ended the operative procedure.
[2018-01-05] MEDS ORDERED: Ringers Solution, Lactated 1,000 ML ONE (23:21)
--- NOTE | 2018-01-05 23:52 | Anesthesia Evaluation Post Op ---
Date of Encounter: 01/05/18 Time of Encounter: 23:50 - Vital Signs Vital Signs: Vital Signs/O2 Sat/Glucose, Most Current Temp Pulse Resp BP Pulse Ox 01/05/18 23:38 98.4 F 75 18 129/80 100 01/05/18 23:28 73 20 127/85 98 01/05/18 23:18 72 22 111/69 97 01/05/18 23:08 98.9 F 80 26 88/61 97 01/05/18 20:00 94 - Lungs Lungs: Clear Ascult./Percussion - Airway Airway: Non-obstructed - Cardiovascular Regular Rate - Mental Status Mental Status: Alert & Oriented, Answers Appropriately - Pain Pain Scale: 0 - Nausea Vomiting Nausea Vomiting: Not Present - Hydration Hydration: Ice chips - Discharge PostOp Status: Transfer Patient to floor
[2018-01-06] MEDS ORDERED: *HR* OxyCODONE Immed Rel 5 MG TABLET PO PRN (00:04)
[2018-01-06] MEDS ORDERED: traMADol 50 MG TABLET PO PRN (00:04)
[2018-01-06] MEDS ORDERED: Acetaminophen 325 MG TABLET PO PRN (00:04)
[2018-01-06] MEDS ORDERED: Naloxone 0.4 MG/ML INJ IVP PRN (00:04)
[2018-01-06] MEDS ORDERED: Nitroglycerin 0.4 MG TAB.SUBL SL PRN (00:04)
[2018-01-06 05:35] LABS: Hematocrit 48.8 % (37.5-50.1); Hemoglobin 15.5 g/dL (12.9-16.9); Immature Granulocytes % 0.4 % (0-4); Lymphocytes # 0.3 K/mcL (0.6-4.6); Lymphocytes % 3.1 %; Mean Corpuscular HGB Conc 31.8 g/dL (31.6-35.5); Mean Corpuscular Hemoglobin 29.1 pg (28.0-33.3); Mean Corpuscular Volume 91.6 fL (83.0-100.0); Mean Platelet Volume 11.3 fL (9.4-12.4); Monocytes # 0.3 K/mcL (0.0-1.3); Monocytes % 3.4 %; Neutrophils # 7.9 K/mcL (1.6-8.9); Platelet Count 154 K/mcL (140-400); Red Blood Count 5.33 M/mcL (4.19-5.50); Red Cell Distribution Width 13.9 % (11.5-14.5); Segmented Neutrophils % 93.1 %
[2018-01-06 05:44] LABS: INR 1.4; Prothrombin Time 16.3 Seconds (9.4-12.1)
[2018-01-06 05:53] LABS: Calcium 8.5 mg/dL (8.6-10.3); Potassium 4.3 mEq/L (3.5-5.1)
[2018-01-06] MEDS ORDERED: Lisinopril 20 MG TABLET PO SCH (09:00)
--- NOTE | 2018-01-06 09:09 | Event Note ---
<Devin Richard S - Last Filed: 01/06/18 09:06> Date of Encounter: 01/06/18 Time of Encounter: 09:06 pt is seen and examined at bedside - no compaints, no chest pain, SOB, n/v/d - abd pain is improving and is minimal - urology saw and stented yesterday Pt is stable for d/c, d/c orders already in - can leave after attending sees Exam - no pertinent positives A/P 1. Kindey stone - pt was stented by urology yesterday - stable for d/c 2. ANGELO - improving, was most likely 2/2 poor PO intake - resolved with fluids 3. IVC filter - f/u appt with dr. loyd in 3mos 4. supratherauptic INR - resolved - resume coudmain, PT INR in 3days - follow up with [facility] 1 wk 5. HDL 6. HTN 7. obesity, BMI 30 <Vik Monae - Last Filed: 01/06/18 19:46> I examined this patient and my medical decision-making was reviewed with the Resident Physician. I agree with the documented findings, disposition and treatment plan as described except to the extent set forth below.
[2018-01-06 10:10] VITALS: BP 128/74
--- NOTE | 2018-01-08 12:41 | Electrocardiograph Report ---
[place] [employer] [facility] Test Date: 2018-01-04 Pat Name: Cirilo Ortiz Department: [id number] Room: 3A37 Gender: M [employer]: : 1940 Requested By: Mattie Monae Order Number: [id number] Reading MD: Alek Martin Measurements Intervals [place] Rate: 73 P: FL: QRS: -25 QRSD: 120 T: 131 QT: 436 QTc: 481 Interpretive Statements Atrial fibrillation Nonspecific intraventricular conduction delay Abnormal T, consider ischemia, lateral leads Electronically Signed On 01-08-2018 12:40:11 EDT by Alek Martin
--- NOTE | 2018-01-11 18:20 | Electrocardiograph Report ---
[address] [place], [place] [address] Test Date: 2018-01-05 Pat Name: Cirilo Ortiz Department: 115 Room: 3A37 Gender: M Regional Sales Director: ORX : 1940 Requested By: Abhishek Austin Order Number: [id number] Reading MD: Moy Lockett Measurements Intervals [place] Rate: 65 P: SC: 0 QRS: -4 QRSD: 114 T: 143 QT: 436 QTc: 447 Interpretive Statements ATRIAL FIBRILLATION POSSIBLE ANTERIOR MYOCARDIAL INFARCTION, OF INDETERMINATE AGE MODERATE T-WAVE ABNORMALITY, CONSIDER LATERAL ISCHEMIA Electronically Signed On 01-11-2018 18:18:08 EDT by Moy Lockett
== END 2018-01-06 12:39 | disposition home or self-care (01) ==
LOC: 3ANU 17:56 → EMEROOARM 17:56 → SUATTDRO 22:58 → 3ANU 23:19
PROVIDERS: ADMIT Internal Medicine; ATTEND Student in an Organized Health Care Education/Training Program